=== PATIENT | male | born 1960 | race Caucasian/White ===

== ENCOUNTER 2017-05-15 11:00 | Emergency (ER) | payer BC ==
[~2017-05-15] VITALS: Ht 182.9 cm; Wt 100.0 kg
[2017-05-15 11:02] VITALS: BP 139/84; PULSE 91; TEMP 97.9
[2017-05-15] MEDS ORDERED: CRUTCHES MC (12:30)
[2017-05-15] MEDS ORDERED: NORCO 325 MG-51 TAB PO (12:59)
== END 2017-05-15 13:14 | disposition home or self-care (01) ==
LOC: COL.ER 11:00
DX: S83.92XA Sprain of unspecified site of left knee, initial encounter (principal); Z98.890 Other specified postprocedural states; X50.0XXA Overexertion from strenuous movement or load, initial encounter
CPT/HCPCS: L1830